=== PATIENT | male | born 1970 | race Hispanic/Latino ===

== ENCOUNTER 2024-04-27 14:11 | Emergency (ER) | payer BC ==
[~2024-04-27] VITALS: Ht 172.7 cm; Wt 91.0 kg
[2024-04-27] MEDS ORDERED: SODIUM CHLORIDE 0.9% 1,000 ML IV PRN (14:30)
[2024-04-27 14:54] LABS: ALBUMIN 4.1 g/dL (3.4-5.0); ALBUMIN/GLOBULIN RATIO 1.08 (1.1-2.4); ANION GAP 13.7 (7-21); BILIRUBIN, TOTAL 0.7 ng/dL (0.2-1.0); BUN/CREATININE RATIO 12.17 (6.0-28.6); CALCIUM 9.3 mg/dL (8.5-10.1); CREATININE, SERUM 1.15 mg/dL (0.70-1.30); POTASSIUM 4.7 mmol/L (3.5-5.1); PROTEIN, TOTAL 7.9 g/dL (6.4-8.2)
[2024-04-27 14:55] LABS: EOSINOPHILS 4.6 % (0-6); HEMOGLOBIN 15.9 g/dL (12.0-18.0); LYMPHOCYTES 34.6 % (24-44); MCH 29.3 (27-36); MCHC 35.3 g/dl (30-36); MCV 83.2 fl (81-99); MONOCYTES 8.4 % (0-12); NEUTROPHILS 51.4 % (39-80); PLATELET COUNT 303 K/uL (140-440); RBC 5.41 M/ul (4.3-5.7); RDW 13.2 (10.5-15.0)
[2024-04-27 15:28] LABS: INR 1.07 (0.80-1.30); PARTIAL THROMBOPLASTIN TIME 26.5 Sec (22.9-41.3); PROTIME 13.2 Sec (11.2-14.2)
[2024-04-27 15:31] LABS: INFLUENZA B NAA NEGATIVE (NEGATIVE); RESPIRATORY SYNCYTIAL VIR NAA NEGATIVE (NEGATIVE)
[2024-04-27 16:26] LABS: AMPHETAMINES, URINE NEGATIVE (NEGATIVE); BARBITURATES, URINE NEGATIVE (NEGATIVE); BENZODIAZEPINE, URINE NEGATIVE (NEGATIVE); BUPRENORPHINE, URINE NEGATIVE (NEGATIVE); CANNABINOID, URINE NEGATIVE (NEGATIVE); COCAINE, URINE NEGATIVE (NEGATIVE); ECSTASY, URINE NEGATIVE (NEGATIVE); FENTANYL, URINE NEGATIVE (NEGATIVE); METHADONE, URINE NEGATIVE (NEGATIVE); OPIATES, URINE NEGATIVE (NEGATIVE); OXYCODONE, URINE NEGATIVE (NEGATIVE); PHENCYCLIDINE, URINE NEGATIVE (NEGATIVE)
[2024-04-27 16:45] VITALS: BP 132/92
--- NOTE | 2024-04-30 12:14 | EKG ---
[facility] [address] [facility] [place], [place] [address] Signed Normal sinus rhythm Normal ECG No previous ECGs available Confirmed by Isaiah Ayala MD ([id number]) on 04/30/2024 12:14:12 PM Electronically Signed By: ISAIAH AYALA DO 04/30/24 1214 PATIENT NAME: ADELAIDA PHAM Electrocardiogram DATE OF : 70 PHYSICIAN: ISAIAH AYALA DO REPORT #: [id number] REPORT IS CONFIDENTIAL AND NOT TO BE RELEASED WITHOUT AUTHORIZATION
== END 2024-04-27 16:42 | disposition home or self-care (01) ==
LOC: ED 14:11
PROVIDERS: Emergency Medicine
DX: G45.4 Transient global amnesia (principal); I10 Essential (primary) hypertension; Z11.52 Encounter for screening for COVID-19
CPT/HCPCS: 36415; 70450; 70496; 70498; 71045; 80053; 80307; 85025; 85610; 85730; 87502; 93005; 93010; 99285-25; G0480; Q9967; U0002